=== PATIENT | female | born 1970 | race Caucasian/White ===

== ENCOUNTER 2023-06-16 00:39 | Day surgery (SDC) | payer OTHER, SELFPAY ==
[2023-05-08 15:44] VITALS: BMI 25.8
--- NOTE | 2023-05-08 15:45 | PC.NURSE ---
Report to the Outpatient Waiting Room, entrance under the green pavilion located off [facility], at time _0630_ on date _[id number]_. Planned Procedure Time: _0830_. Time changes happen often and if your time is changed the preop area will call you the afternoon before. - You and your visitor will be asked to self-screen and do not enter if you have any COVID symptoms. - A mask is optional within the hospital at this time. Patients may have clear liquids (water, carbonated beverages, clear teas, apple juice) until 3 hours prior to surgery with a maximum of 20 ounces. - No food from midnight until time of surgery Take the following medications with a SIP of water the morning of surgery: ____None DO NOT STOP ANY OF YOUR OTHER PRESCRIPTION MEDICATIONS PRIOR TO SURGERY ?EXCEPT THE FOLLOWING Medications to discontinue per physician ____Semaglutide Date to take last lcjr___[phone] Please no make-up, nail croatian, hairspray, perfume, deodorant, or body powder the day of surgery. No jewelry (including any body piercings) or valuables the day of surgery, leave them at home. Please take a shower or bath the night before, or the morning of, surgery with an antibacterial soap. Wear comfortable, loose fitting clothing. - Jewelry must be removed prior to entering the operating room. Rings and piercings that are not removed may be cut off. - The hospital will not accept responsibility for valuables. - Please leave all valuables, including medications, at home the day of surgery. If you are going home after surgery, a licensed spike driver must drive you home. - NO public transportation without another adult if you receive anesthesia. - We recommend that an adult stay with you for 24 hours following discharge. - We also recommend that you do not drive, make important decision, drink alcoholic beverages, or take any drugs that were not prescribed by your health care provider for at least 24 hours after your discharge time. Follow any additional instructions given to you from your surgeon. If you or anyone in your household have experienced Covid symptoms in the past week, please notify your surgeon or the nurse liaison at the phone number below for possible testing. Telephone instructions given to _Patient__and asked if any additional questions and then verbalized understanding. Patient advised to call surgeon office or pre surgery nurse liaison [phone] if any additional questions.
--- NOTE | 2023-05-08 16:13 | PC.NURSE ---
Addendum entered by Twila Persaud RN 05/15/23 11:39: 1010 - Spoke with pt regarding ordered EKG. Pt asked why she needed one - informed her because of her documented history of taking Bystolic to slow her heart rate. Pt states she has no history of any cardiac issues and only takes Bystolic for migraines, which causes her heart rate to be slower. Pt again states that Bystolic was prescribed to her only for migraines. Addendum entered by Gayle Kinsey RN 05/09/23 10:58: Notified Mabel at Dr. Lloyd's office that per anesthesiologist (Dr. Back) pt will need to have an EKG preop if surgery is to be done here. She states she will notify Dr. Lloyd and notify the patient. Original Note: Patient very upset at being told she needed and EKG. Expained to her that it was and anesthesia requirement because she takes Bystolic to slow her heart and she's scheduled for a general anesthesia. She remarked that she had surgery at [facility] 4 months ago and they didn't require it. She feels it is an unnecessary expense to her and is going to call Dr Arbahan Trujillo to talk about it and may not have this surgery at our hospital. I told her I was sorry she felt that way and gave her the number to schedule the EKG if she should decide to proceed.
--- NOTE | 2023-06-09 16:13 | SUR.PREOP ---
Report to the Outpatient Waiting Room, entrance under the green pavilion located off [facility], at time 0730 on date 06/09/23. Planned Procedure Time: 0930. Time changes happen often and if your time is changed the preop area will call you the afternoon before. - You and your visitor will be asked to self-screen and do not enter if you have any COVID symptoms. - A mask is optional within the hospital at this time. Patients may have clear liquids (water, carbonated beverages, clear teas, apple juice) until 3 hours prior to surgery with a maximum of 20 ounces. - NO CLEAR LIQUIDS AFTER 0630 - No food from midnight until time of surgery - Infants may have breast milk until 4 hours before surgery, infant formula 6 hours prior to surgery. - Children will be allowed to drink immediately following surgery. If applicable, please bring a bottle or sippy cup to assist with drinking. Juice, water, soda, and popsicles are readily available. For infants on formula, please bring formula the day of surgery. Pacifiers are allowed. Take the following medications with a SIP of water the morning of surgery: N/A DO NOT STOP ANY OF YOUR OTHER PRESCRIPTION MEDICATIONS PRIOR TO SURGERY ?EXCEPT THE FOLLOWING Medications to discontinue per physician N/A Date to take last dose Please no make-up, nail occitan, hairspray, perfume, deodorant, or body powder the day of surgery. No jewelry (including any body piercings) or valuables the day of surgery, leave them at home. Please take a shower or bath the night before, or the morning of, surgery with an antibacterial soap. Wear comfortable, loose fitting clothing. Children are encouraged to wear pajamas. - Jewelry must be removed prior to entering the operating room. Rings and piercings that are not removed may be cut off. - The hospital will not accept responsibility for valuables. - Please leave all valuables, including medications, at home the day of surgery. If you are going home after surgery, a licensed armor reconnaissance vehicle driver must drive you home. - NO public transportation without another adult if you receive anesthesia. - We recommend that an adult stay with you for 24 hours following discharge. - We also recommend that you do not drive, make important decision, drink alcoholic beverages, or take any drugs that were not prescribed by your health care provider for at least 24 hours after your discharge time. For Pediatric surgeries, we recommend two adults accompany the child home. Follow any additional instructions given to you from your surgeon. If you or anyone in your household have experienced Covid symptoms in the past week, please notify your surgeon or the nurse liaison at the phone number below for possible testing. Telephone instructions given to JUMANA WHALEN and asked if any additional questions and then verbalized understanding. Patient advised to call surgeon office or pre surgery nurse liaison [phone] if any additional questions.
--- NOTE | 2023-06-14 07:03 | PM.IMHP ---
H&P: HPI History of Present Illness Date/Time: 06/14/23 07:03 Chief Complaint: Perineal discomfort Narrative: This is a 53-year-old female 2 para 2 with perineal discomfort. There is an irregularity in the perineal area that bleeds easily. Has very benign look to it but is weak and irregular. The procedure was explained and she was given the risk of possible future discomfort with intercourse. She had all questions answered and asked to proceed PMFSH Social History Social History Smoking status: Never smoker Alcohol intake: current Living arrangements: with family Spiritual care concerns: No Meds Home Medications and Allergies Home Medications Medication Instructions Recorded Confirmed Type cetirizine 10 mg tablet (Zyrtec) 10 mg PO HS 05/08/23 05/08/23 History nebivolol 5 mg tablet 5 mg PO HS 05/08/23 05/08/23 History semaglutide 2 mg/dose (8 mg/3 mL) 2 mg subcut WEEKLY 05/08/23 05/08/23 History subcutaneous pen injector Allergies Allergy/AdvReac Type Severity Reaction Status Date / Time morphine Allergy Unknown ITCHING Verified 05/08/23 15:34 Exam Const: General: cooperative, healthy appearing and comfortable Nutritional Appearance: average body habitus Orientation/consciousness: oriented to person, oriented to place and oriented to time Resp: Effort & Inspection: normal respiratory effort Cardio: Rate: regular rate Rhythm: regular rhythm Heart sounds: S1 normal heart sound present and S2 normal heart sound present GI: Inspection: normal to inspection : Speculum Exam - Vagina: normal appearance of the vagina (Irregular fragile tissue at the opening of the vagina.) Speculum Exam - Cervix: normal appearance of the cervix Bimanual exam- vagina & uterus: non-tender Bimanual Exam- Adnexa, other: normal adnexae Assessment and Plan Assessment and plan (1) Weakness of perineal floor: Code(s): N81.89 - Other female genital prolapse Status: Acute Plan Perineoplasty
--- NOTE | 2023-06-16 06:30 | WPDHPUPDATE1 ---
History and Physical Update Update Date/Time: 06/16/23 06:30 History and Physical has been reviewed, including an updated exam of the patient. There are NO changes in the patient's condition. Risks, benefits, and alternatives have been discussed and questions answered. Patient agrees to proceed with procedure.
[2023-06-16 07:44] VITALS: BP 116/96; PULSE 93; RESP 16; TEMP 36.4; O2SAT 99
[2023-06-16] MEDS: LACTATED RINGERS 1,000 ML 30 ML IV CONT (08:00)
--- NOTE | 2023-06-16 08:02 | WPDANESEPPF ---
Anes - Initial Pre Proc Eval Procedure: Operation Date: 06/16/23 09:30 Proposed Procedures p Perineoplasty with Abnormal Tissue Removal - Sean Trujillo MD Date/Time: 06/16/23 08:02 Surgeon: Sean Trujillo MD Pre Op Diagnosis: removal of abnormal tissue Patient Data Age: 53 Gender: F Height: 1.68 m Weight: 74.8 kg Last Vital Signs Temp 36.4 C 06/16/23 07:44 Pulse 93 06/16/23 07:44 Resp 16 06/16/23 07:44 BP 116/96 H 06/16/23 07:44 Pulse Ox 99 06/16/23 07:44 O2 Del Method Room Air 06/16/23 07:44 Allergies Allergy/AdvReac Type Severity Reaction Status Date / Time morphine Allergy Unknown ITCHING Verified 05/08/23 15:34 Home Medications Medication Instructions Recorded Confirmed Type cetirizine 10 mg tablet (Zyrtec) 10 mg PO HS 05/08/23 05/08/23 History nebivolol 5 mg tablet 5 mg PO HS 05/08/23 05/08/23 History semaglutide 2 mg/dose (8 mg/3 mL) 2 mg subcut WEEKLY 05/08/23 05/08/23 History subcutaneous pen injector Patient hx anesthesia problems: none Family hx anesthesia problems: none Results Review: All pre-operative results and documents have been reviewed as part of the pre-operative evaluation. [facility] Social History Social History Smoking status: Never smoker Alcohol intake: current Living arrangements: with family Spiritual care concerns: No Anes - Eval Final PreProcedure Day of Procedure 06/16/23 08:02 Patient weight: overweight Heart: regular rate and rhythm Lungs: clear to auscultation Airway: Mallampati scale class II Neurological: alert and oriented Last oral intake: >/= 8 hours ASA classification: II Emergent: no Anesthetic plan: proceed Anesthesia type and monitoring: general GIVS and standard monitoring Results Review: All pre-operative results and documents have been reviewed as part of the pre-operative evaluation. Informed Consent: The patient's anesthetic plan and its attendant risks and benefits were discussed with the patient/family/POA. Questions were solicited and answers provided to the satisfaction of the patient/family/POA.
[2023-06-16] MEDS: SCOPOLAMINE 1.5 MG PATCH TRANSDERM (08:09)
[2023-06-16] MEDS: LIDO 1%/EPINEPHRINE 1:100,000 50 ML VIAL 10 ML INFILTRATE (09:37)
--- NOTE | 2023-06-16 09:46 | W.PM.PROC2 ---
Procedure Note - Detailed Date of Procedure 06/16/23 Pre-op Diagnosis removal of abnormal tissue Post-op Diagnosis Same Procedure Performed Revision of perineum Surgeon Sean Trujillo MD Anesthesia MAC and Local Indications This is a 52 female with perineal break admitted repair Findings Irregular perineum with inflammatory tissue Description of Procedure The patient was prepped draped sterile fashion placed in the dorsal position. Excellent IV sedation the perineum was instilled with 4cc of % xylocaine anesthesia with epinephrine. The inflamed tissue was grasped and a circumferential incision made removing the perineal mucosa. Once this the inflammatory tissue had been removed the tissue was closed with 3-0 Monocryl. She tolerated the procedure loss was estimated 5cc. Sponge, needle instrument counts were correct. Estimated Blood Loss 5 Drains No Packing No Pathology None sent Complications No immediate complications Condition Stable Disposition PACU
[2023-06-16 09:47] VITALS: BP 89/52; PULSE 101; RESP 16; O2SAT 96
[2023-06-16 10:15] VITALS: BP 105/69; PULSE 53; RESP 16; O2SAT 96
[2023-06-16] MEDS: ONDANSETRON INJ 4 MG/2 ML VIAL IV PUSH (10:29)
--- NOTE | 2023-06-16 10:38 | SUR.PHASEII ---
PATIENT HAS MIGRAINE MEDICATION IN HER CAR THAT OUR PHARMACY DOESN'T CARRY. WILL TAKE IT SOON SHE CAN FOR THE MIGRAINE THAT SHE FEELS COMING ON.
== END 2023-06-16 10:37 | disposition home or self-care (01) ==
PROVIDERS: PCP Physician Assistant; Visit Provider Obstetrics & Gynecology
PROC: (CPT 56810; principal; 2023-06-16 09:30)
DX: N81.89 Other female genital prolapse (principal); Z79.85 Long-term (current) use of injectable non-insulin antidiabetic drugs
CPT/HCPCS: 56810; A9270; J2250; J2405; J2704; J3010; J7120

== ENCOUNTER 2025-04-21 14:50 | Emergency (ER) | payer BC, SELFPAY ==
--- NOTE | ~2025-04-21 | XR_ITS ---
EXAMINATION: XR foot RT min 3V DATE: 04/21/2025 15:40 INDICATION: Rolled ankle today. TECHNIQUE: 4 images of the right foot were obtained. COMPARISON: None. FINDINGS: [ No significant degenerative change.] [ No radiographic evidence for an acute fracture or dislocation.] [ No radiopaque foreign body.] [ No sclerotic or destructive bone lesions.] Soft tissue swelling about the right foot. IMPRESSION: 1. [ No acute bony abnormality identified.] If symptoms persist or worsen consider a short-term follow-up study or additional imaging for further assessment. Reviewed, dictated and finalized at location Q. IMPRESSION: 1. [ No acute bony abnormality identified.] If symptoms persist or worsen consider a short-term follow-up study or addition al imaging for further assessment.
--- NOTE | ~2025-04-21 | XR_ITS ---
EXAMINATION: XR ankle RT min 3V DATE: 04/21/2025 15:39 INDICATION: Rolled ankle today TECHNIQUE: 4 images of the right ankle were obtained. COMPARISON: None. FINDINGS: [ No significant degenerative change.] [ No radiographic evidence for an acute fracture or dislocation.] [ No radiopaque foreign body.] [ No sclerotic or destructive bone lesions.] Soft tissue swelling about the right ankle. Talar dome is unremarkable. IMPRESSION: 1. [ No acute bony abnormality identified.] If symptoms persist or worsen consider a short-term follow-up study or additional imaging for further assessment. Reviewed, dictated and finalized at location Q. IMPRESSION: 1. [ No acute bony abnormality identified.] If symptoms persist or worsen consider a short-term follow-up study or addition al imaging for further assessment.
[2025-04-21 15:00] VITALS: BP 144/94; PULSE 92; RESP 16; TEMP 37.2; O2SAT 99
--- OUTSIDE RECORDS SUMMARY | 2025-04-21 15:06 | XMS_ITS | Clinical Summary ---
Author Organization [facility] Address [address] [address] Phone Care Team Providers Care Container Finishing Inspector Name Role Phone Unavailable Primary Care Provider Unavailabl e Allergies No known active allergies Medications Eletriptan Hydrobromide (RELPAX) 40 MG TabletIndications: Migraine without status migrainosus, not intractable, unspecified migraine type Take 1 Tab by mouth once as needed for up to 1 dose. may repeat in 2 hours if necessary 10 Tab 0 06/16/20 16 Active fluticasone (FLONASE) 50 MCG/ACT SuspensionIndicati ons:Allergic rhinitis due to pollen, unspecified rhinitis seasonality 2 Sprays by Nasal route daily. Use in each nostril as directed. 1 Bottle 0 06/16/20 16 Active Dextromethorphan-G uaifenesin (MUCINEX DM) 30-600 MG TABLET SR 12 HR Take 1 Tab by mouth 2 times daily as needed (cough). YOU MAY BUY THIS OVER THE COUNTER WITHOUT A PRESCRIPTION AND CAN BE USED FOR COUGH AND CONGESTION. 30 Tab 06/20/20 16 Active atorvastatin (LIPITOR) 20 MG TabletIndications: Hyperlipidemia, unspecified hyperlipidemia type Take 1 Tab by mouth daily. 30 Tab 3 08/18/19 17 Active Active Problems Problem Noted Date Diagnosed Date Hyperlipidemia 08/18/2016 Migraine 06/16/2016 Allergic rhinitis due to pollen 06/16/2016 Family History Medical History Relation Name Comments Cervical Cancer Mother Diabetes Mother Hypertension Mother Relation Name Status Comments Mother Social History Tobacco Use Types Packs/Day Years Used Date Smoking Tobacco: Never Smokeless Tobacco: Never Tobacco Cessation:Counseling Given: Yes Alcohol Use Standard Drinks/Week Comments Yes 0 (1 standard drink = 0.6 oz pur e alcohol) rarely Comments No Sex and Gender Information Value Date Recorded Sex Assigned at Not on file Legal Sex Female 11:48 AM CDT Gender Identity Not on file Sexual Orientation Not on file Last Filed Vital Signs Vital Sign Reading Time Taken Comments Blood Pressure 120/74 08/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 Pulse 90 08/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 Temperature 36.7 C (98 F) 08/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 Respiratory Rate 18 08/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 Oxygen Saturation 98% 08/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 Inhaled Oxygen Concentration - - Weight 75.2 kg (165 lb 12.8 oz) 08/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 Height 167.6 cm (5' 6) 08/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 Body Mass Index 26.76 08/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 Plan of Treatment Health Maintenance Due Date Last Done Comments Hepatitis C Virus (HCV) Screening 1972 TdaP Immunization 1972 Hepatitis B Immunization (1 of 3 - 19+ 3-dose series) 1991 Pap Smear 1993 Cervical Cancer Screening (CCS) 2002 HPV/Cotest 2002 Cologuard 2017 Colonoscopy 2017 Colorectal Cancer Screening 2017 Immunochemical Fecal Occult Blood 2017 Pneumococcal Immunization (5 0+ years) (1 of 1 - PCV) 2022 Zoster Immunization (1 of 2) 2022 SARS-COV-2 Immunization (1 - 2023-25 season) 2024 Influenza Immunization (#1) 2025 Respiratory Syncytial Virus (RSV) Immunization (Adult) (1 - 1-dose 75+ series) 2047 Human Papillomavirus (HPV) Immunization Aged Out No longer eligible b ased on patient's age to complete this topic Meningococcal Immunization (ACWY) Aged Out No longer eligible based on patient's age to complete this topic Rotavirus Immunization Aged Out No lo nger eligible based on patient's age to complete this topic
--- OUTSIDE RECORDS SUMMARY | 2025-04-21 15:06 | XMS_ITS | Clinical Summary ---
Author Organization [facility] Address [address] [place] [address] Care Team Providers Care Manager Of Creative Services Name Role Phone Sean Ferro Primary Care Provider [phone] Shira Amin Unavailable [phone] Allergies Active Allergy Reactions Criticality Noted Date Comments Hydrocodone Headache Low 10/13/2022 Morphine Itching Low Oxycodone Headache Low 10/13/2022 Tramadol Headache Low 10/13/2022 Medications eletriptan (RELPAX) 40 mg tablet TAKE ONE TABLET BY MOUTH AT ONSET OF MIGRAINE. IF SYMPTOMS PERSIST A SECOND DOSE MAY BE TAKEN IN 2 HOURS. DO NOT EXCEED 2 DOSES IN A 24 HOUR PERIOD UNLESS OTHERWISE INSTRUCTED BY YOUR PHYSICIAN 1 Active ondansetron (ZOFRAN) 8 mg tablet Take by mouth daily as needed 1 Active cetirizine (ZyrTEC) 10 mg tablet Take 1 tablet (10 mg total) by mouth daily Active senna-docusate (PERICOLACE) 8.6-50 mg Take 1-2 tablets daily prn for constipation 30 tablet 1 Active albuterol HFA (PROVENTIL HFA,VENTOLIN HFA,PROAIR HFA) 90 mcg/actuation inhaler Inhale 2 puffs every 4 (four) hours as needed for wheezing Active omeprazole (PriLOSEC) 20 mg capsule Take 1 capsule (20 mg total) by mouth daily as needed Active SUMAtriptan (IMITREX) 50 mg tablet Take 1 tablet (50 mg total) by mouth once as needed 1 Active Bystolic 5 mg tablet Take 1 tablet (5 mg total) by mouth daily 1 Active semaglutide (Wegovy) 0.25 mg/0.5 mL auto-injector 0.5 mL (0.25 mg total) Active pantoprazole DR (PROTONIX) 40 mg EC tabletIndicatio ns:Stress Ulcer Prophylaxis,Barrett atment of Non-Bleeding Gastric Disorder Take 1 tablet (40 mg total) by mouth nightly 30 tablet 3 Active Active Problems Problem Noted Date Diagnosed Date Splenic lesion 12/27/2022 Colitis presumed infectious 12/26/2022 Asthma 12/26/2022 Closed bimalleolar fracture of left ankle 2022 Hyperlipidemia 08/18/2016 Migraine 06/16/2016 Resolved Problems Problem Noted Date Diagnosed Date Resolved Date Arthritis of left acromioclavicular joint 2021 06/15/2021 Overview (2021): Added automatically from request for surgery [id number] Impingement syndrome of right shoulder 2021 06/15/2021 Overview (2021): Added automatically from request for surgery [id number] Biceps tendonitis on left 2021 Overview (2021): Added automatically from request for surgery [id number] Surgical History Surgery Date Site/Laterality Comments TUBAL LIGATION SHOULDER SURGERY Left SECTION 01/07/1994 & 06/07/1995 Medical History Medical History Date Comments Migraines Asthma GERD (gastroesophageal reflux disease) PONV (postoperative nausea and vomiting) Motion sickness Family History Medical History Relation Name Comments Alcohol abuse Father Luca COPD Maternal Grandmother Nimco Hearing loss Maternal Grandmother Nimco Alcohol abuse Mother Trinity Diabetes Mother Trinity Alzheimer's disease Mother's Sister Claudia Stroke Paternal Grandmother Shira Relation Name Status Comments Father Luca Maternal Grandmother Nimco Mother Trinity Alive Mother's Sister Claudia Paternal Grandmother Shira Social History Tobacco Use Types Packs/Day Years Used Date Smoking Tobacco: Never Smokeless Tobacco: Never Tobacco Cessation:Counseling Given: Not Answered Alcohol Use Standard Drinks/Week Comments Not Currently 0 (1 standard drink = 0.6 oz pur e alcohol) Social Connection and Isolation Panel Answer Date Recorded In a typical week, how many times do you talk on the phone with family, friends, or neighbors? More than three times a week 12/27/2022 How often do you get togethe r with friends or relatives? Once a week 12/27/2022 How often do you attend chur or jehovah's witness services? Never 12/27/2022 Do you belong to any clubs o r organizations such as gnosticist groups, unions, fraternal or athletic groups, or school groups? No 12/27/2022 How often do you attend meet ings of the clubs or organizations you belong to? Never 12/27/2022 Are you , , di vorced, , never , or living with a partner? 12/27/2022 AUDIT-C Answer Date Recorded Q1: How often do you have a drink containing alc ohol? Monthly or less 10/20/2022 Q2: How many drinks containi ng alcohol do you have on a typical day when you are drinking? 1 or 2 10/20/2022 Q3: How often do you have si x or more drinks on one occasion? Never 10/20/2022 Overall Financial Resource Strain (CARDIA) Answe r Date Recorded How hard is it for you to pa y for the very basics like food, housing, medical care, and heating? Not hard at all 12/27/2022 Hunger Vital Sign Answer Date Recorded Within the past 12 months, y ou worried that your food would run out before you got the money to buy more. Never true 12/28/19 Within the past 12 months, t he food you bought just didn't last and you didn't have money to get more. Never true 12/27/2022 PRAPARE - Transportation Answer Date Re corded In the past 12 months, has l ack of transportation kept you from medical appointments or from getting medications? No 11/30 In the past 12 months, has l ack of transportation kept you from meetings, work, or from getting things needed for daily living? No 12/27/2022 Housing Stability Vital Sign Answer Néstor e Recorded In the last 12 months, was t here a time when you were not able to pay the mortgage or rent on time? No 12/27/2022 In the last 12 months, how many places have you lived? 1 12/27/2022 In the last 12 months, was t here a time when you did not have a steady place to sleep or slept in a alf (including now)? No 12/27/2022 Personal Safety Answer Date Recorded Have you ever been in or are you currently in a harmful physical or emotional relationship or is someone making you feel afraid or unsafe? Denies 12/26/2022 Education Answer Date Recorded What is the highest level of school you have completed or the highest degree you have received? Some college, no degree 12/27/2022 Comments No Sex and Gender Information Value Date Recorded Sex Assigned at Not on file Legal Sex Female 6:19 PM [employer] Gender Identity Female 02/10/2021 9:50 AM CDT Sexual Orientation Straight 02/10/2021 9: 50 AM CDT Obstetrics History Last Filed Vital Signs Vital Sign Reading Time Taken Comments Blood Pressure 116/80 02/22/2023 2:04 PM CDT Pulse 88 02/22/2023 2:04 PM CDT Temperature 36.6 C (97.9 F) 12/27/2022 3:08 PM CDT Respiratory Rate 18 12/27/2022 3:08 PM CDT Oxygen Saturation 100% 12/27/2022 3:0 8 PM CDT Inhaled Oxygen Concentration - - Weight 79.5 kg (175 lb 3.2 oz) 02/22/2023 2:04 PM CDT Height 166.4 cm (5' 5.5) 02/22/2023 2: 04 PM CDT Measured height Body Mass Index 28.71 02/22/2023 2:04 PM CDT Plan of Treatment Health Maintenance Due Date Last Done Comments Breast Cancer Screening-Mammogram 1972 Cervical Cancer Screening 1972 Colon Cancer Screening-Colonoscopy 1972 Depression Screening 1972 Hepatitis C Screening 1972 DTaP/Tdap/Td Vaccine (1 - Tdap) 1983 Hepatitis B Screening 1990 Regular Well Visit/Exam 18-64 1990 Pneumococcal vaccine <65 (1 of 2 - PCV) 1991 Zoster Vaccine (1 of 2) 2022 Influenza Vaccine (#1) 2025 Medical Devices Implanted Type Area Storage Specialist Device Identifier Shelf Expiration Date Model / Serial / Lot [employer] Low Profile Screws 2.7mm 16mm Modular Solid Hexalobe Self Tap [id number]-[id number] - [id number] Implanted:Qty: 2 on 10/20/2022 by Sergei Riley MD at [facility] Screw Left: Ankle [employer] AR-8827-16 / / [employer] Low Profile Screws 4mm 34mm Cannulated Short Thread Screw Bone [id number] - [id number] Implanted:Qty: 1 on 10/20/2022 by Sergei Riley MD at [facility] Screw Left: Ankle [employer] AR-8840C-3 4 / / [employer] Fibulock 3mm 130mm Fibular Left Nail Intramedullary [id number] - [id number] Implanted:Qty: 1 on 10/20/2022 by Sergei Riley MD at [facility] Left: Ankle [employer] 11/27/2026 AR-[id number]-3 0-130 / / [id number] [employer] System Fxatn Tightrope Xp Ss Syndesmosis Repair [id number] - [id number] Implanted:Qty: 1 on 10/20/2022 by Sergei Riley MD at [facility] Left: Ankle [employer] 08/30/2027 [id number] / / [id number] Insurance [employer] [facility] Advance Directives For more information, please contact: [phone] * Full Code (Latest Code Status on File) Date Activated Date Inactivated Comments 12/26/2022 4:35 PM 12/27/2022 10:14 PM * Full Code Date Activated Date Inactivated Comments 12/26/2022 4:35 PM 12/26/2022 4:35 PM Care Teams Manager Of Creative Services Relationship Specialty Start Date End Date Sean Ferro PA [address] [place] [address] PCP - General 10/20/20 Shira Amin PA [address] [place] [address] Physician Pressure Controller Orthopedic Surgery 04/28/21
--- NOTE | 2025-04-21 16:04 | ED.LOWEXIN ---
HPI - Extremity Injury (Lower) General Chief Complaint: Extremity Injury, Lower Stated Complaint: rolled right ankle Time Seen by Provider: 04/21/25 15:55 Source: patient and RN notes reviewed Mode of arrival: ambulatory Limitations: no limitations History of Present Illness HPI Narrative: 55-year-old female presents Express Care complaining of injury to right foot/ankle. Patient reports couple days ago she was walking on sidewalk checks they walked on even gravel and rolled her right ankle fell to the ground. Patient denies hitting her head, loss of consciousness, neck pain, back pain, or any other injuries. Patient reports she has been able to bear weight on her right ankle with some discomfort. Patient has been trying ice to help with the swelling with some relief. Patient denies any numbness, tingling or any other injuries. Patient denies any significant past medical history. Patient denies taking any blood thinners. Related Data Home Medications ?Medication ?Instructions ?Recorded ?Confirmed ?Last Taken ?Type cetirizine 10 mg tablet (Zyrtec) 10 mg PO HS 05/08/23 05/08/23 Unknown History nebivolol 5 mg tablet 5 mg PO HS 05/08/23 05/08/23 Unknown History semaglutide 2 mg/dose (8 mg/3 mL) 2 mg subcut WEEKLY 05/08/23 05/08/23 Unknown History subcutaneous pen injector Allergies Allergy/AdvReac Type Severity Reaction Status Date / Time morphine Allergy Unknown ITCHING Verified 04/21/25 15:10 Review of Systems Review of Systems: CONSTITUTIONAL: Denies fever, chills, or sweats. EYES: Denies visual changes, redness, or discharge. ENT: Denies rhinorrhea, congestion, sore throat, or otalgia. CARDIOVASCULAR: Denies chest pain, palpitations, dizziness, lightheadedness, or edema. RESPIRATORY: Denies cough or dyspnea. GASTROINTESTINAL: Denies abdominal pain, nausea, vomiting, or diarrhea. GENITOURINARY: Denies dysuria or hematuria. SKIN: Denies rash, wound, or itching. MUSCULOSKELETAL: Denies back pain, joint pain, or myalgia. Positive for right ankle/foot injury and swelling NEUROLOGIC: Denies headache, numbness, loss of consciousness, slurred speech facial droop, seizures or weakness. PSYCHIATRIC: Denies anxiety or depression. All other systems reviewed are negative, except as documented in HPI. PMFSH Social History Social History Smoking status: Never smoker Alcohol intake: current Living arrangements: with family Spiritual care concerns: No Comments At the time of my signature, I reviewed and agree with the nursing past medical, surgical, social, and family history. There is no relevant family history pertinent to the patient complaint. Exam Narrative: GENERAL: This is a well-nourished, well-developed adult, in no apparent distress. They are non ill-appearing, nontoxic appearing. HEAD: normocephalic, atraumatic. EYES: Sclera clear/white. Vision is grossly intact. Conjunctiva normal. Extraocular movement intact. EARS: External ears normal Hearing grossly intact. NOSE: External nose normal THROAT: Mucous membranes moist NECK: Neck supple CARDIOVASCULAR: Regular rate and rhythm RESPIRATORY: Respiratory rate normal, respiratory effort nonlabored, no respiratory distress NEURO: awake, alert, and oriented to person, place and time. There were no obvious focal neurologic abnormalities. EXTREMITIES: Right ankle/foot: No obvious deformity, injury,, redness. There is swelling and bruising present to the lateral proximal dorsal foot extending up to the lateral ankle. Ankle is nontender through full range of motion. There is tenderness to palpation to the lateral dorsal proximal foot and lateral ankle. Capillary refill less than 3 seconds. Right pedal Pulse 2 +palpable. Normal sensation. Neurovascular status intact distal injury. Patient is able to wiggle her toes. Negative Barton's test. BACK: Nontender without deformity. Course Course Emergency Course: Portions of this record may have been created with voice recognition software Level of Care: Express Care Visit Vital Signs Vital signs: Vital Signs Temperature 99.0 F 04/21/25 15:00 Pulse Rate 92 04/21/25 15:00 Respiratory Rate 16 04/21/25 15:00 Blood Pressure 144/94 H 04/21/25 15:00 Pulse Oximetry 99 04/21/25 15:00 Oxygen Delivery Room Air 04/21/25 15:00 Temperature 99.0 F 04/21/25 15:00 Pulse Rate 92 04/21/25 15:00 Respiratory Rate 16 04/21/25 15:00 Blood Pressure 144/94 H 04/21/25 15:00 Pulse Oximetry 99 04/21/25 15:00 Oxygen Delivery Room Air 04/21/25 15:00 Reviewed MDM - Extremity Injury (Lower) MDM Narrative Medical decision making narrative: X-ray right foot and ankle is negative for any fractures or acute findings. Likely a contusion or sprain. Patient given Yevgeniy wrap for compression. Recommend supportive therapy. Discussed physical exam findings. Advised supportive measures and signs/symptoms to go to the ER. Pt is appropriate for outpt treatment and f/u. Differential Diagnosis Differential diagnosis: Likely ankle sprain and strain, ankle fracture and other (Foot sprain, foot contusion, ankle contusion, toe fracture, foot fracture) Imaging Data Radiologist's impression: ITS Impressions Ankle X-Ray 04/21/25 15:41 IMPRESSION: 1. [ No acute bony abnormality identified.] If symptoms persist or worsen consider a short-term follow-up study or additional imaging for further assessment. Foot X-Ray 04/21/25 15:41 IMPRESSION: 1. [ No acute bony abnormality identified.] If symptoms persist or worsen consider a short-term follow-up study or additional imaging for further assessment. Critical Care Time Critical Care Time Critical Care Time: No Discharge Plan Discharge Clinical Impression: Injury of right ankle and foot, Fall Patient Disposition: Home Condition: Stable Instructions: Foot Sprain (ED), P.R.I.C.E. Treatment (ED) Additional Instructions: The x-ray of your right foot and ankle are negative for any fractures or acute findings. Rest and elevate the leg; bear weight as tolerated Apply ice or heat 15-20 minute intervals several times a day Keep it wrapped with YEVGENIY or use a soft ankle splint You may take ibuprofen 600 mg to 800 mg every 6-8 hours. Do not exceed more than 800 mg of ibuprofen per dose. Do not exceed more than 3200 mg ibuprofen in a day. You may take up to 1000 mg Tylenol every 6-8 hours. Do not exceed 1000 mg per dose, do exceed more than 4000 mg of Tylenol in a day. Follow up with your primary care provider orthopedist as needed in 1-2 weeks especially if pain persists Patient Language: Sami Prescriptions: No Action cetirizine [Zyrtec] 10 mg Tablet 10 mg PO HS nebivolol 5 mg tablet 5 mg PO HS semaglutide 2 mg/dose (8 mg/3 mL) Pen Injector 2 mg SUBCUT WEEKLY Rx Instructions: Monday Follow-up/Referrals: Pillo,DEWAYNE King [Primary Care Provider] Homero Vazquez MD [Physician, Orthopedics] Time of Disposition: 16:04
== END 2025-04-21 16:06 | disposition home or self-care (01) ==
PROVIDERS: PCP Physician Assistant
DX: S99.911A Unspecified injury of right ankle, initial encounter (principal); S99.921A Unspecified injury of right foot, initial encounter; X50.9XXA Other and unspecified overexertion or strenuous movements or postures, initial encounter
CPT/HCPCS: 73610; 73630; 99213; G0463